=== PATIENT | female | born 1985 | race Caucasian/White ===

== ENCOUNTER 2021-10-24 10:47 | Emergency (ER) | payer BC, SELFPAY ==
[2021-10-24 11:10] VITALS: BP 137/83; PULSE 90; RESP 18; TEMP 36.5; O2SAT 100
--- NOTE | 2021-10-24 12:46 | ED.URI ---
HPI - URI/Sore Throat General Chief Complaint: Upper Respiratory Infection Stated Complaint: SORE THROAT/HEADACHE/COUGH/CHEST TIGHT Time Seen by Provider: 10/24/21 12:46 Source: patient and RN notes reviewed Limitations: no limitations History of Present Illness HPI Narrative: The patient, is a smoker/drinker here with newly positive Covid children, presents with shorter couple day history of chills, cough, scratchy throat and loose stools. is also unwell pending PCR results; no fever, loss of taste/smell, CP, vomiting/diarrhea, wheezing, S OB. Symptoms are mild, slightly worse at night Related Data Allergies Allergy/AdvReac Type Severity Reaction Status Date / Time Sulfa (Sulfonamide Allergy Unknown Verified 10/24/21 11:14 Antibiotics) Review of Systems Review of Systems: General/Constitutional: No weight loss,fever Eyes: N0: Redness,discharge Ears/Nose/Throat: No: Epistaxis,ear discharge Respiratory: Denies: Hemoptysis Gastrointestinal: No Vomiting, Bleeding-rectal Skin: No Lumps, eruption Neurologic: No Focal Weakness,Sz Hematologic: Denies: Petechiae/Purpura Psychiatric: No: Suicida ideationl All Other Systems: Reviewed and Negative PMFSH Comments At time of signature, agree with nursing past medical, surgical, social and family history. There is no relevant family history pertinent to the presenting complaint Exam Narrative: General Appearance: Well appearing, Well nourished EYE: PERRLA, Conjunctiva clear Ears: Auditory canal normal, TM normal Nose: Rhinorrhea, Mucousal erythema Mouth/Throat: MM moist, Uvula midline, Pharyngeal erythema Neck: Supple, No adenopathy Respiratory: No respiratory distress, Breath sounds equal, Clear to auscultation Cardiovascular: RRR, No JVD Musculoskeletal: Non tender, Normal strength Skin: Warm, Dry Neurological: A&O x3, CN II-XII intact Psychiatric: Normal mood, Normal affect Course Vital Signs Vital signs: Vital Signs Temperature 97.7 F 10/24/21 11:10 Pulse Rate 90 10/24/21 11:10 Respiratory Rate 18 10/24/21 11:10 Blood Pressure 137/83 10/24/21 11:10 Pulse Oximetry 100 10/24/21 11:10 Temperature 97.7 F 10/24/21 11:10 Pulse Rate 90 12/29/21 11:10 Respiratory Rate 18 10/24/21 11:10 Blood Pressure 137/83 10/24/21 11:10 Pulse Oximetry 100 10/24/21 11:10 MDM - URI/Sore Throat Lab Data Labs: Lab Results 10/24/21 Range/Units 11:52 POC SARS CoV-2 Ag Negative (Negative) Discharge Plan Discharge Clinical Impression: COVID-19 determined by clinical diagnostic criteria Patient Disposition: Home, Self-Care Condition: Stable Instructions: COVID-19 (Coronavirus Disease 2019) (ED) Additional Instructions: Isolate yourself, and inform close contacts who then should quarantine Take supplement vitamins D, B, C, zinc and baby aspirin daily Call your PMD for consideration for antivirals, monoclonal antibodies Consider getting pulse ox and return for walking pulse oximetry <93% COnsider reviewing youTube 'If you get covid Dr Harper Consider allow low fever, begin treat for fevers > 102 with tylenol Prescriptions: New benzonatate 100 mg capsule 100 mg PO TID PRN (Reason: cough) Qty: 20 RF: 2 codeine-guaifenesin 10-100 mg/5 mL liquid 7.5 ml PO TID PRN (Reason: cough) Qty: 237 RF: 0 Follow-up/Referrals: PHYSICIAN NOT ON STAFF,NONSTAFF [Primary Care Provider] - Stand Alone Forms: Work/School Release IP
== END 2021-10-24 13:01 | disposition home or self-care (01) ==
PROVIDERS: Emergency Provider Emergency Medicine
DX: U07.1 COVID-19 (principal)
CPT/HCPCS: 87426; 99213; C9803; G0463

== ENCOUNTER 2025-10-03 18:29 | Emergency (ER) | payer BC, SELFPAY ==
[2025-10-03 19:06] VITALS: BP 144/91; PULSE 108; RESP 20; TEMP 36.8; O2SAT 98
--- NOTE | 2025-10-03 20:55 | PC.NURSE ---
no answer at 2054
--- NOTE | 2025-10-03 21:14 | PC.NURSE ---
no answer at 2113
--- NOTE | 2025-10-03 21:30 | PC.NURSE ---
no answer for triage at 213
== END 2025-10-03 22:30 | disposition left against medical advice (07) ==
PROVIDERS: PCP Nurse Practitioner
DX: R10.9 Unspecified abdominal pain (principal)
CPT/HCPCS: 99199